=== PATIENT | male | born 1970 | race Caucasian/White ===

== ENCOUNTER → 2022-09-04 | Day surgery (SDC) | payer OTHER ==
[~2022-09-04] VITALS: Ht 172.7 cm; Wt 97.5 kg
[~2022-09-04] MED LIST: SIMVAST PO
== END | disposition home or self-care (01) ==
LOC: ADM 08-29 11:30 → CIR.AMB 09:25 → EDBD 11:30 → CIR.AMB 11:30
PROVIDERS: ATTEND Colon & Rectal Surgery
DX: K60.3 Anal fistula (principal); Z20.822 Contact with and (suspected) exposure to COVID-19

== ENCOUNTER 2022-10-16 07:17 | Day surgery (SDC) | payer OTHER ==
[~2022-10-16] VITALS: Ht 170.2 cm; Wt 95.3 kg
== END 2022-10-16 18:45 | disposition home or self-care (01) ==
LOC: CIR.AMB 07:17
PROVIDERS: ATTEND Colon & Rectal Surgery
DX: K60.3 Anal fistula (principal); L92.9 Granulomatous disorder of the skin and subcutaneous tissue, unspecified; Z20.822 Contact with and (suspected) exposure to COVID-19

== ENCOUNTER 2023-05-21 08:32 | Day surgery (SDC) | payer OTHER ==
[~2023-05-21] VITALS: Ht 170.2 cm; Wt 90.7 kg
== END 2023-05-21 16:40 | disposition home or self-care (01) ==
LOC: CIR.AMB 08:32
PROVIDERS: ATTEND Colon & Rectal Surgery
DX: K60.3 Anal fistula (principal); D37.8 Neoplasm of uncertain behavior of other specified digestive organs; Z20.822 Contact with and (suspected) exposure to COVID-19; E78.5 Hyperlipidemia, unspecified